=== PATIENT | female | born 2000 | race Caucasian/White ===

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

== ENCOUNTER 2019-02-17 08:19 | Emergency (ER) | payer OTHER ==
[~2019-02-17] VITALS: Ht 157.5 cm; Wt 53.1 kg
[2019-02-17 08:23] VITALS: Ht 157.5 cm; Wt 53.1 kg
[2019-02-17 09:56] VITALS: BP 110/70
== END 2019-02-17 10:07 | disposition home or self-care (01) ==
LOC: ED 08:19
DX: S20.211A Contusion of right front wall of thorax, initial encounter (principal); W18.39XA Other fall on same level, initial encounter; Y93.89 Activity, other specified; Y92.89 Other specified places as the place of occurrence of the external cause; Y99.8 Other external cause status